=== PATIENT | male | born 1950 | race Caucasian/White ===

== ENCOUNTER 2018-02-06 05:20 | Emergency (ER) | payer MEDICARE ==
[~2018-02-06] VITALS: Ht 167.6 cm; Wt 126.3 kg
[2018-02-06 05:37] VITALS: BP 196/81; PULSE 77; RESP 18; TEMP 97.3; O2SAT 99
[2018-02-06] MEDS ORDERED: SODIUM CHLOR 0.9% 1000 ML INJ 1,000 ML IV SCH (06:03)
[2018-02-06] MEDS ORDERED: KETOROLAC TROMETHAMINE 30 MG/ML (IVP) VIAL IV PUSH ONE (06:15)
[2018-02-06] MEDS ORDERED: ONDANSETRON HCL 4 MG/2 ML VIAL IVP ONE (06:15)
[2018-02-06] MEDS ORDERED: SODIUM CHLORIDE 0.9% FLUSH 10 ML FLUSH IV FLUSH PRN (06:15)
[2018-02-06] MEDS ORDERED: SITA1TAB2 PO (06:23)
[2018-02-06] MEDS ORDERED: ATOR20TA15 PO (06:23)
[2018-02-06] MEDS ORDERED: VITA100064 PO (06:23)
[2018-02-06] MEDS ORDERED: METF1000 PO (06:23)
[2018-02-06] MEDS ORDERED: MULTTAB68 PO (06:23)
[2018-02-06] MEDS ORDERED: GLIM2TAB PO (06:23)
[2018-02-06] MEDS ORDERED: METO50TA PO (06:23)
[2018-02-06 06:28] VITALS: BP 178/82; PULSE 88; RESP 18; O2SAT 97
[2018-02-06 06:31] LABS: AUTOMATED NEUTROPHIL # 8.1 TH/MM3 (1.8-7.7); BASOPHIL # 0.1 TH/MM3 (0-0.2); BASOPHIL % 0.5 % (0.0-2.0); EOSINOPHIL # 0.1 TH/MM3 (0-0.4); EOSINOPHIL % 0.8 % (0.0-4.0); HEMATOCRIT 42.6 % (39.0-51.0); HEMOGLOBIN 14.3 GM/DL (13.0-17.0); LYMPH % 17.7 % (9.0-44.0); MEAN CELL VOLUME 88.9 FL (80.0-100.0); MEAN CORPUSCULAR HEMOGLOBIN 29.9 PG (27.0-34.0); MEAN CORPUSCULAR HGB CONC 33.6 % (32.0-36.0); MEAN PLATELET VOLUME 9.2 FL (7.0-11.0); MONO % 6.8 % (0.0-8.0); MONOCYTE # 0.8 TH/MM3 (0-0.9); NEUT % 74.2 % (16.0-70.0); PLATELET COUNT 213 TH/MM3 (150-450); RED BLOOD COUNT 4.79 MIL/MM3 (4.50-5.90); RED CELL DISTRIBUTION WIDTH 13.4 % (11.6-17.2); WHITE BLOOD COUNT 11.1 TH/MM3 (4.0-11.0)
--- NOTE | 2018-02-06 06:56 | PD ---
HPI Chief Complaint: GI Complaint Time Seen by Provider: 05:57 Travel History International Travel<30 days: No Contact w/Intl Traveler<30days: No Traveled to known affect area: No History of Present Illness HPI Patient is a 67-year-old male presents emergency department for evaluation of right lower quadrant abdominal pain nausea vomiting and diarrhea since this morning. Patient states this has not happened to him before. He is a diabetic he does not routinely check his blood sugar. States that she is food that he is vomiting no blood, watery diarrhea but no blood no melena. Denies any chest pain or shortness of breath. States the pain is fairly mild but the nausea and vomiting was fairly intense. PFSH Past Medical History Arthritis: Yes Cancer: Yes (SKIN) High Cholesterol: Yes Diabetes: Yes Patient Takes Glucophage: Yes Hypertension: Yes Kidney Stones: Yes Sleep Apnea: Yes (NO CPAP USE) Tetanus Vaccination: > 5 Years Influenza Vaccination: Yes Past Surgical History Joint Replacement: Yes (LEFT KNEE) Tonsillectomy: Yes Social History Alcohol Use: No Tobacco Use: No (QUIT 1999) Substance Use: No Allergies-Medications (Allergen,Severity, Reaction): Coded Allergies: No Known Allergies (Unverified , 02/06/18) Reported Meds & Prescriptions Reported Meds & Active Scripts Active Reported Epn-Xicjvd-Qatlr (Multivitamin) 1 Each Tablet 1 Tab PO DAILY Metoprolol Tartrate 50 Mg Tab 50 Mg PO DAILY Glimepiride 2 Mg Tab 2 Mg PO DAILY Take with breakfast or first main meal Vitamin D3 (Cholecalciferol) 1,000 Unit Tab 1,000 Units PO BID Januvia (Sitagliptin Phosphate) 100 Mg Tab 100 Mg PO DAILY Atorvastatin (Atorvastatin Calcium) 20 Mg Tab 20 Mg PO HS Metformin (Metformin HCl) 1,000 Mg Tab 1,000 Mg PO DAILY With a meal Review of Systems Except as stated in HPI: all other systems reviewed are Neg Physical Exam Narrative GENERAL: Well-developed well-nourished no obvious distress. He has vomited once while in the emergency department. Nonbilious nonbloody. SKIN: Focused skin assessment warm/dry. HEAD: Atraumatic. Normocephalic. EYES: Pupils equal and round. No scleral icterus. No injection or drainage. ENT: No nasal bleeding or discharge. Mucous membranes pink and moist. NECK: Trachea midline. No JVD. CARDIOVASCULAR: Regular rate and rhythm. No murmur appreciated. RESPIRATORY: No accessory muscle use. Clear to auscultation. Breath sounds equal bilaterally. GASTROINTESTINAL: Abdomen soft, non-tender, nondistended. Hepatic and splenic margins not palpable. No rebound no percussive tenderness peer MUSCULOSKELETAL: No obvious deformities. No clubbing. No cyanosis. No edema. NEUROLOGICAL: Awake and alert. No obvious cranial nerve deficits. Motor grossly within normal limits. Normal speech. PSYCHIATRIC: Appropriate mood and affect; insight and judgment normal. Data Data Last Documented VS Vital Signs Date Time Temp Pulse Resp B/P (MAP) Pulse Ox O2 Delivery O2 Flow Rate FiO2 02/06/18 07:06 96 Room Air 02/06/18 07:06 96 18 02/06/18 05:37 97.3 Orders Orders Complete Blood Count With Diff (02/06/18 06:03) Comprehensive Metabolic Panel (02/06/18 06:03) Lipase (02/06/18 06:03) Prothrombin Time / Inr (Pt) (02/06/18 06:03) Act Partial Throm Time (Ptt) (02/06/18 06:03) Urinalysis - C+S If Indicated (02/06/18 06:03) Iv Access Insert/Monitor (02/06/18 06:03) Ecg Monitoring (02/06/18 06:03) Oximetry (02/06/18 06:03) Ondansetron Inj (Zofran Inj) (02/06/18 06:15) Sodium Chlor 0.9% 1000 Ml Inj (Ns 1000 M (02/06/18 06:03) Sodium Chloride 0.9% Flush (Ns Flush) (02/06/18 06:15) Ketorolac Inj (Toradol Inj) (02/06/18 06:15) Ct Abd/Pel W Iv Contrast(Rout) (02/06/18 ) Labs Laboratory Tests Test 02/06/18 06:00 White Blood Count 11.1 TH/MM3 Red Blood Count 4.79 MIL/MM3 Hemoglobin 14.3 GM/DL Hematocrit 42.6 % Mean Corpuscular Volume 88.9 FL Mean Corpuscular Hemoglobin 29.9 PG Mean Corpuscular Hemoglobin Concent 33.6 % Red Cell Distribution Width 13.4 % Platelet Count 213 TH/MM3 Mean Platelet Volume 9.2 FL Neutrophils (%) (Auto) 74.2 % Lymphocytes (%) (Auto) 17.7 % Monocytes (%) (Auto) 6.8 % Eosinophils (%) (Auto) 0.8 % Basophils (%) (Auto) 0.5 % Neutrophils # (Auto) 8.1 TH/MM3 Lymphocytes # (Auto) 2.0 TH/MM3 Monocytes # (Auto) 0.8 TH/MM3 Eosinophils # (Auto) 0.1 TH/MM3 Basophils # (Auto) 0.1 TH/MM3 CBC Comment DIFF FINAL Differential Comment Sodium Level 134 MEQ/L Potassium Level 4.5 MEQ/L Chloride Level 99 MEQ/L [facility] Medical Decision Making Medical Screen Exam Complete: Yes Emergency Medical Condition: Yes Differential Diagnosis Gastritis, gastroneuritis, appendicitis, cholecystitis, electrolyte abnormality , hyperglycemia, DKA is possible but seems unlikely. Narrative Course Patient roomed in ER. Tor[place]nie, arun, fluid lab and CT ordered. D/W Dr. Antoine at 0700 shift change to follow up and disposition appropriately. Jabier Farrar MD Feb 06, 2018 06:56
[2018-02-06 07:06] VITALS: BP 164/74; PULSE 96; RESP 18; O2SAT 96; O2SAT 97
[2018-02-06 07:16] LABS: CHLORIDE 99 MEQ/L (98-107); SODIUM (NA) 134 MEQ/L (136-145)
[2018-02-06 07:20] LABS: ALBUMIN 3.4 GM/DL (3.4-5.0); BICARBONATE 25.4 MEQ/L (21.0-32.0); BLOOD UREA NITROGEN 16 MG/DL (7-18); CALCIUM 8.7 MG/DL (8.5-10.1); GLUCOSE,RANDOM 289 MG/DL (74-106); INTERNATIONAL NORMALIZED RATIO 1.1 RATIO; PROTHROMBIN TIME - PATIENT 10.9 SEC (9.8-11.6)
[2018-02-06 07:22] LABS: ALT (GPT) 65 U/L (12-78)
[2018-02-06 07:23] LABS: AST (GOT) 34 U/L (15-37); GLOMERULAR FILTRATION RATE 67 ML/MIN (>89)
[2018-02-06 07:24] LABS: TOTAL BILIRUBIN ADULT 0.6 MG/DL (0.2-1.0); TOTAL PROTEIN 7.5 GM/DL (6.4-8.2)
[2018-02-06 07:25] LABS: ALKALINE PHOSPHATASE 102 U/L (45-117)
[2018-02-06 08:21] LABS: BILIRUBIN, URINE NEG (NEG); BLOOD, URINE LARGE (NEG); GLUCOSE,URINE 1000 OR GREATER mg/dL (NEG); KETONE, URINE 40 mg/dL (NEG); NITRITE,URINE NEG (NEG); PH, URINE 5.5 (5.0-8.5); URINE COLOR YELLOW (YELLW/STRAW); URINE LEUKOCYTE ESTERASE NEG (NEG)
[2018-02-06 08:28] LABS: AMORPHOUS SEDIMENT, URINE FEW; SQUAMOUS EPITHELIAL CELL URINE 0-5 /hpf (0-5)
--- NOTE | 2018-02-06 09:12 | RADRPT ---
EXAM DATE/TIME: 02/06/2018 08:36 [place] COMPARISON: No previous studies available for comparison. INDICATIONS : Right lower quadrant pain. Nausea and diarrhea. ORAL CONTRAST: No oral contrast ingested. RADIATION DOSE: 25.00 CTDIvol (mGy) ; Patient body habitus MEDICAL HISTORY : Renal calculi. Diabetes mellitus type 2. Hypertension. SURGICAL HISTORY : None. ENCOUNTER: Initial ACUITY: 1 day PAIN SCALE: 7/10 LOCATION: Right lower quadrant TECHNIQUE: Volumetric scanning of the abdomen and pelvis was performed. Using automated exposure control and ad justment of the mA and/or kV according to patient size, radiation dose was kept as low as reasonably achievable to obtain optimal diagnostic quality images. DICOM format image data is available electro nically for review and comparison. FINDINGS: LOWER LUNGS: The visualized lower lungs are clear. LIVER: The liver is enlarged and demonstrates diffuse fatty infiltration. There is no dilation of the biliar y tree. No calcified gallstones. SPLEEN: Normal size without lesion. PANCREAS: Within normal limits. KIDNEYS: Perinephric streakiness is noted on the right which may be a result of recently passed calculus and p revious obstructive uropathy. No calcified obstructing calculus is noted on the right at this time. T here is a tiny fibroma calcified nonobstructing right renal calculus. Multiple bilateral renal cysts are noted with the largest on left measuring 3.3 cm. ADRENAL GLANDS: Within normal limits. VASCULAR: Mild ectasia of the distal abdominal aorta is noted with maximal diameter measuring 2.5 cm BOWEL/MESENTERY: The stomach, small bowel, and colon demonstrate no acute abnormality. There is no free intraperitone al air or fluid. The appendix is normal. ABDOMINAL WALL: Within normal limits. RETROPERITONEUM: There is no lymphadenopathy. BLADDER: No wall thickening or mass. REPRODUCTIVE: Within normal limits. INGUINAL: There is no lymphadenopathy or hernia. MUSCULOSKELETAL: Degenerative changes and scoliosis of the thoracolumbar spine. CONCLUSION: 1. Perinephric streakiness on the right which may be a result of recently passed calculus or previous obstructive uropathy. No acute obstructive uropathy is noted. 2. 5 mm calcified nonobstructing right renal calculus is noted. 3. Multiple bilateral renal cysts. 4. Enlarged fatty liver. 5. Degenerative changes and scoliosis of the thoracolumbar spine. 6. Mild distal abdominal aortic ectasia measuring 2.5 cm. Jabier Winslow MD on February 06, 2018 at 9:00 Board Certified Radiologist. This report was verified electronically.
--- NOTE | 2018-02-06 09:19 | PD ---
Physical Exam Narrative GENERAL: 67-year-old male in no apparent distress, notes pain free now SKIN: Focused skin assessment warm/dry. HEAD: Atraumatic. Normocephalic. EYES: No scleral icterus. No injection or drainage. ENT: No nasal bleeding or discharge. Mucous membranes pink and moist. NECK: Trachea midline. CARDIOVASCULAR: Regular rate and rhythm. RESPIRATORY: No accessory muscle use. Clear to auscultation. Breath sounds equal bilaterally. NEUROLOGICAL: Awake and alert. No obvious cranial nerve deficits. Motor grossly within normal limits. Normal speech. PSYCHIATRIC: Appropriate mood and affect; insight and judgment normal. Data Data Last Documented VS Vital Signs Date Time Temp Pulse Resp B/P (MAP) Pulse Ox O2 Delivery O2 Flow Rate FiO2 02/06/18 07:06 96 Room Air 02/06/18 07:06 96 18 02/06/18 05:37 97.3 Orders Orders Complete Blood Count With Diff (02/06/18 06:03) Comprehensive Metabolic Panel (02/06/18 06:03) Lipase (02/06/18 06:03) Prothrombin Time / Inr (Pt) (02/06/18 06:03) Act Partial Throm Time (Ptt) (02/06/18 06:03) Urinalysis - C+S If Indicated (02/06/18 06:03) Iv Access Insert/Monitor (02/06/18 06:03) Ecg Monitoring (02/06/18 06:03) Oximetry (02/06/18 06:03) Ondansetron Inj (Zofran Inj) (02/06/18 06:15) Sodium Chlor 0.9% 1000 Ml Inj (Ns 1000 M (02/06/18 06:03) Sodium Chloride 0.9% Flush (Ns Flush) (02/06/18 06:15) Ketorolac Inj (Toradol Inj) (02/06/18 06:15) Ct Abd/Pel W/O Iv Contrast (02/06/18 ) Ed Discharge Order (02/06/18 09:18) Labs Laboratory Tests Test 02/06/18 06:00 02/06/18 07:01 02/06/18 08:06 White Blood Count 11.1 TH/MM3 Red Blood Count 4.79 MIL/MM3 Hemoglobin 14.3 GM/DL Hematocrit 42.6 % Mean Corpuscular Volume 88.9 FL Mean Corpuscular Hemoglobin 29.9 PG Mean Corpuscular Hemoglobin Concent 33.6 % Red Cell Distribution Width 13.4 % Platelet Count 213 TH/MM3 Mean Platelet Volume 9.2 FL Neutrophils (%) (Auto) 74.2 % Lymphocytes (%) (Auto) 17.7 % Monocytes (%) (Auto) 6.8 % Eosinophils (%) (Auto) 0.8 % Basophils (%) (Auto) 0.5 % Neutrophils # (Auto) 8.1 TH/MM3 Lymphocytes # (Auto) 2.0 TH/MM3 Monocytes # (Auto) 0.8 TH/MM3 Eosinophils # (Auto) 0.1 TH/MM3 Basophils # (Auto) 0.1 TH/MM3 CBC Comment DIFF FINAL Differential Comment Prothrombin Time 10.9 SEC Prothromb Time International Ratio 1.1 RATIO Activated Partial Thromboplast Time 23.8 SEC Blood Urea Nitrogen 16 MG/DL Creatinine 1.10 MG/DL Random Glucose 289 MG/DL Total Protein 7.5 GM/DL Albumin 3.4 GM/DL Calcium Level 8.7 MG/DL Alkaline Phosphatase 102 U/L Aspartate Amino Transf (AST/SGOT) 34 U/L Alanine Aminotransferase (ALT/SGPT) 65 U/L Total Bilirubin 0.6 MG/DL Sodium Level 134 MEQ/L Potassium Level 4.5 MEQ/L Chloride Level 99 MEQ/L Carbon Dioxide Level 25.4 MEQ/L Anion Gap 10 MEQ/L Estimat Glomerular Filtration Rate 67 ML/MIN Lipase 230 U/L Urine Collection Type CLEAN CATCH Urine Color YELLOW Urine Turbidity CLEAR Urine pH 5.5 Urine Specific [place] 1.020 Urine Protein NEG mg/dL Urine Glucose (UA) 1000 OR GREATER mg/dL Urine Ketones 40 mg/dL Urine Occult Blood LARGE Urine Nitrite NEG Urine Bilirubin NEG Urine Urobilinogen 0.2 MG/DL Urine Leukocyte Esterase NEG Urine RBC 20-24 /hpf Urine Squamous Epithelial Cells 0-5 /hpf Urine Amorphous Sediment FEW Microscopic Urinalysis Comment CULT NOT INDICATED Urine Collection Time 0806 [facility] Supervised Visit with YOVANY: No Interpretation(s) CBC & BMP Diagram 02/06/18 06:00 02/06/18 07:01 Total Protein 7.5, Albumin 3.4, Calcium Level 8.7, Alkaline Phosphatase 102, Aspartate Amino Transf (AST/SGOT) 34, Alanine Aminotransferase (ALT/SGPT) 65, Total Bilirubin 0.6 Last 24 hours Impressions Abdomen/Pelvis CT 02/06/18 0000 Signed Impressions: Service Date/Time: Tuesday, February 06, 2018 08:36 - CONCLUSION: 1. Perinephric streakiness on the right which may be a result of recently passed calculus or previous obstructive uropathy. No acute obstructive uropathy is noted. 2. 5 mm calcified nonobstructing right renal calculus is noted. 3. Multiple bilateral renal cysts. 4. Enlarged fatty liver. 5. Degenerative changes and scoliosis of the thoracolumbar spine. 6. Mild distal abdominal aortic ectasia measuring 2.5 cm. Jabier Winslow MD Given copy of CT to follow-up additional findings as an outpatient and informed of these Narrative Course Signed over to me to follow workup and reevaluate. Patient likely passed a kidney stone given symptoms and CT report.Patient denies any new complaints and states that they are feeling better. Patient happy with care, all questions answered. Patient knows that follow up is incumbent on them and to return to the emergency room immediately if new or worsening symptoms develop. Patient given strict return precautions, vitals reviewed and are normal, agrees to further workup as an outpatient. Diagnosis Primary Impression: Abdominal pain Qualified Codes: R10.31 - Right lower quadrant pain Patient Instructions: General Instructions Additional Instruction: return as needed, follow with primary friday, tylenol as needed Med/Other Pt SpecificInfo: No Change to Meds Disposition: 01 DISCHARGE HOME Condition: Stable Bernie Antoine MD Feb 06, 2018 09:19
[2018-02-06 09:32] VITALS: BP 135/78
== END 2018-02-06 09:33 | disposition home or self-care (01) ==
LOC: PHED 05:20
DX: R10.31 Right lower quadrant pain (principal); R11.2 Nausea with vomiting, unspecified; R19.7 Diarrhea, unspecified; E11.9 Type 2 diabetes mellitus without complications; E78.00 Pure hypercholesterolemia, unspecified; I10 Essential (primary) hypertension; G47.30 Sleep apnea, unspecified; Z79.84 Long term (current) use of oral hypoglycemic drugs; Z87.39 Personal history of other diseases of the musculoskeletal system and connective tissue; Z87.442 Personal history of urinary calculi; Z85.828 Personal history of other malignant neoplasm of skin
CPT/HCPCS: 74176; 80053; 81001; 83690; 85025; 85610; 85730; 96361; 96374; 96375; 99285; J1885; J2405; J7030